=== PATIENT | female | born 1955 | race Caucasian/White ===

== ENCOUNTER 2019-09-20 09:50 | Day surgery (SDC) | payer OTHER, MEDICARE ==
[2019-09-19 11:28] LABS: CALC OSMOLALITY 280 mosm/kg (275-300); CARBON DIOXIDE 29.7 mmol/L (21.0-32.0); CHLORIDE - SERUM 105 mmol/L (98-107); CREATININE - SERUM 0.7 mg/dL (0.6-1.3); GLUCOSE 120 mg/dL (74-106); POTASSIUM - SERUM 3.6 mmol/L (3.5-5.1); SODIUM 140 mmol/L (136-145); UREA NITROGEN 15 mg/dL (7-18); eGFR NON AFRICAN AMERICAN 89 mL/min (90-120)
[2019-09-19 12:37] LABS: HEMATOCRIT 40.4 % (36.0-48.0); HEMOGLOBIN 13.4 g/dL (12-16); MCH 29.1 pg (26.0-34.0); MCHC 33.2 g/dL (31.0-37.0); MCV 87.8 fL (80.0-100.0); RBC 4.6 10x6/uL (4.00-5.40); RDW 14.9 % (11.5-14.5); WBC 6.9 10x3/uL (4.8-10.8)
[2019-09-19 12:38] LABS: MEAN PLATELET VOLUME 10.5 fL (7.4-10.4)
[~2019-09-20] VITALS: Ht 165.1 cm; Wt 133.4 kg
[~2019-09-20 09:50] MED LIST: ADVAIR HFA [SP]12 GM INH; BAYER CHEWABLE81 MG PO; CELEXA40 MG PO; CORGARD80 MG PO; CRESTOR5 MG PO; ELIQUIS5 MG PO; FUROSEMIDE40 MG PO; LEVOXYL100 MCG PO; METOLAZONE2.5 MG PO; OMEPRAZOLE20 M1; VITAMIN D250000 UNIT PO; ZOMIG5 MG PO
[2019-09-20 10:19] VITALS: Ht 165.1 cm; Wt 133.4 kg
[2019-09-20] MEDS ORDERED: DURICEF500 MG PO (12:35)
[2019-09-20] MEDS ORDERED: PERCOCET 5-3251 TAB PO (12:35)
--- NOTE | 2019-09-23 11:55 | OP ---
PATIENT NAME: ASHVIN JACOBSEN MEDICAL RECORD: [id number] :53 LOCATION:[facility] ADMISSION DATE: SURGEON: DOM MAHAJAN DO DATE OF OPERATION: 09/20/2019 PROCEDURE PERFORMED: Left endoscopic carpal tunnel release and left open cubital tunnel release. PREOPERATIVE DIAGNOSES: Left carpal tunnel syndrome and left cubital tunnel syndrome. POSTOPERATIVE DIAGNOSES: Left carpal tunnel syndrome and left cubital tunnel syndrome. INDICATIONS: Ms. Jacobsen is a 64-year-old female who has had left carpal tunnel symptoms for quite some time. She had a nerve conduction study done that showed [id number] carpal tunnel syndrome on the left as well as cubital tunnel syndrome on the left. She wanted something done, was tired dealing with the pain and I told her the risks including infection, bleeding, damage to the median and ulnar nerves, loss of function of those nerves, need for further surgery, continued pain and the numbness may not completely return due to the damage of the nerves already. She is aware that risks and signed the consent. SURGEON: Dom Mahajan DO DESCRIPTION OF PROCEDURE: The patient was taken to the operative suite, laid in supine position, given 3 grams of Ancef preoperatively, sedated and LMA was placed. The left upper extremity was then prepped and draped in sterile fashion. Timeout was performed. Everyone was in agreeance with the correct side, site, patient and procedure. I was assisted by Emiliano Sinclair, certified surgical first line supervisor. He assisted with retraction as well as closing. Once time-out had been performed, the incision was made over the cubital tunnel at the elbow and careful dissection was made down to the ulnar nerve and this was dissected out very carefully. There was a very tight compression of the Nelson ligament. This was released proximally as well up to the triceps septum and then distally into the flexor carpi ulnaris and the nerve was freed up at that point and no compression sites were noted. Then, attention was drawn to the carpal tunnel and small incision was made at the wrist crease of the left wrist, a little bit ulnar and then a Ragnells were used to carefully dissect down to the median nerve in the carpal tunnel. The forearm fascia was released from distal to proximal at that point and then the dilators were placed into the carpal tunnel. The sheath was then placed in, camera was then entered. A probe and rasp were used to ensure there was no transverse ligament to this nerve, and there was not and then the blade was then brought in and raised up in the transverse carpal ligament was divided with fat herniating down into the carpal tunnel, indicating good release. This was all then removed and then with a direct loop visualization and a pickup and Ragnell and Littler scissors. Any fibers left remaining were spread and had a good release of the carpal tunnel and the transverse carpal ligament. The tourniquet was then let down. The sites were injected with 0.25% Marcaine with epinephrine, 5 mL in each site. Any bleeding was coagulated with the bipolar. The carpal tunnel was then closed with 5-0 Monocryl in an inverted interrupted fashion and Steri-Strips placed on it and then the cubital tunnel was closed with 3-0 Vicryl in an inverted interrupted fashion and then 5-0 Monocryl ran on the skin. Steri-Strips were placed on that. She was then dressed with Adaptic and 4 x 4s and a Kerlix and OPERATIVE REPORT [id number] ASHVIN JACOBSEN then a 4-inch Prasad wrap from the hand up above the elbow. She was awakened and taken to recovery in stable condition. BLOOD LOSS: Minimal. COMPLICATIONS: None. TRANSINT:[id number] Voice Confirmation ID: [id number] DOCUMENT ID: [id number] DOM MAHAJAN DO at 1155 CC: [id number] DICTATION DATE: 09/20/19 1240 FINANCE VICE PRESIDENT: 09/20/19 1637 [facility] [address] [place] [address]
== END 2019-09-20 09:51 | disposition home or self-care (01) ==
LOC: D.OPS 09:50 → D.PAN 13:00 → D.OPS 13:15 → D.PAN 13:15 → D.OPS 13:45 → D.PAN 13:45 → D.OPS 10-11 13:15
PROVIDERS: Anesthesiology; ATTEND Orthopaedic Surgery
DX: G56.02 Carpal tunnel syndrome, left upper limb (principal); G56.22 Lesion of ulnar nerve, left upper limb; M79.644 Pain in right finger(s); G56.03 Carpal tunnel syndrome, bilateral upper limbs; I82.509 Chronic embolism and thrombosis of unspecified deep veins of unspecified lower extremity; E78.00 Pure hypercholesterolemia, unspecified; J45.909 Unspecified asthma, uncomplicated; E66.01 Morbid (severe) obesity due to excess calories; K21.9 Gastro-esophageal reflux disease without esophagitis; I48.0 Paroxysmal atrial fibrillation; Z79.01 Long term (current) use of anticoagulants; E03.9 Hypothyroidism, unspecified

== ENCOUNTER → 2019-09-20 09:50 | Day surgery (SDC) | payer OTHER, MEDICARE ==
[~2019-09-20 09:50] MED LIST changes: +DURICEF500 MG PO; +PERCOCET 5-3251 TAB PO
[2019-09-20 10:19] VITALS: BMI 49.0
== END | disposition home or self-care (01) ==
LOC: D.OPS 09:50 → D.PAN 10-11 07:00
PROVIDERS: ATTEND Orthopaedic Surgery
DX: G56.02 Carpal tunnel syndrome, left upper limb (principal); G56.22 Lesion of ulnar nerve, left upper limb

== ENCOUNTER 2019-10-08 15:25 | Inpatient (IN) | payer OTHER, MEDICARE ==
[~2019-10-08] VITALS: Ht 165.1 cm; Wt 129.5 kg
[2019-10-08 16:03] LABS: CALC OSMOLALITY 283 mosm/kg (275-300); CALCIUM 8.7 mg/dL (8.5-10.1); CARBON DIOXIDE 27.4 mmol/L (21.0-32.0); CHLORIDE - SERUM 103 mmol/L (98-107); GLUCOSE 95 mg/dL (74-106); POTASSIUM - SERUM 3.4 mmol/L (3.5-5.1); SODIUM 141 mmol/L (136-145); UREA NITROGEN 21 mg/dL (7-18); eGFR NON AFRICAN AMERICAN 59 mL/min (90-120)
[2019-10-08 16:04] LABS: BASOPHILS 0.4 % (0-2); EOSINOPHILS 2.6 % (0-7); HEMATOCRIT 43.9 % (36.0-48.0); HEMOGLOBIN 14.8 g/dL (12-16); IMMATURE GRANULOCYTES 0.3 % (0-5); LYMPHOCYTES 24.9 % (15-50); MCH 29.4 pg (26.0-34.0); MCHC 33.7 g/dL (31.0-37.0); MCV 87.1 fL (80.0-100.0); MONOCYTES 12.1 % (2-11); NEUTROPHILS 59.7 % (40-80); PLATELET COUNT 311 10x3/uL (130-400); RBC 5.04 10x6/uL (4.00-5.40); RDW 14.4 % (11.5-14.5)
[2019-10-08 16:28] LABS: ALBUMIN 3.7 g/dL (3.4-5.0); ALKALINE PHOSPHATASE 102 U/L (46-116); ALT (SGPT) 37 U/L (10-68); BILIRUBIN - TOTAL 0.33 mg/dL (0.2-1.3); CKMB 2.4 U/L (0.0-3.6); CREATINE KINASE 78 UL (21-215); PROTEIN - SERUM 7.2 g/dL (6.4-8.2); THYROID STIMULATING HORMONE 3.08 uIU/mL (0.36-3.74); TROPONIN-I < 0.017 ng/mL (0.000-0.060)
[2019-10-08 16:31] LABS: APTT 28.3 SECONDS (22.8-39.4); INR 1.11 (0.85-1.17); PROTIME 13.8 SECONDS (11.6-15.0)
[2019-10-08] MEDS ORDERED: NADOLOL80 MG PO (17:20)
--- NOTE | 2019-10-08 19:10 | NUR ---
PALPATED RADIAL PULSE 62. PAGED AT THIS TIME CONCERNING MED ORDERS FOR CARDIZEM 10MG BOLUS, CARDIZEM DRIP.
--- NOTE | 2019-10-08 19:26 | NUR ---
PER DR. MCINTYRE VERBAL ORDER, CARDIZEM DRIP AND CARDIZEM BOLUS NOT TO BE GIVEN TO PT.
--- NOTE | 2019-10-08 19:50 | NUR ---
ADMIT TO ROOM 215 FROM ER. ALERT/ORIENTED/AMBULATORY. ADMISSION ASSESSMENT AND HISTORY COMPLETED. HOME MEDS REVIEWED. BEDTIME MEDS TAKEN FOR TONIGHT FROM HOME MEDS. TELEMETRY STARTED CAF '. PLAN OF CARE INITIATED.
--- NOTE | 2019-10-08 22:38 | NUR ---
PT RESTING WITH NO DISTRESS. ROOM AIR. 85-100 CAF PER TELEMETRY. IVF INFUSING. CPOC.
[2019-10-08 23:56] VITALS: Ht 165.1 cm; Wt 129.5 kg
[2019-10-09] VITALS: BP 101/67
[2019-10-09 00:55] LABS: CKMB 1.6 U/L (0.0-3.6); CREATINE KINASE 63 UL (21-215)
[2019-10-09 00:56] LABS: TROPONIN-I < 0.017 ng/mL (0.000-0.060)
--- NOTE | 2019-10-09 01:46 | NUR ---
RESTING IN BED, IVF INFUSING. 88-110 CAF PER TELEMETRY. CPOC.
[2019-10-09 04:00] VITALS: BP 115/64
[2019-10-09 06:25] LABS: BASOPHILS 0.3 % (0-2); EOSINOPHILS 3.1 % (0-7); HEMATOCRIT 39.1 % (36.0-48.0); IMMATURE GRANULOCYTES 0.3 % (0-5); LYMPHOCYTES 22.3 % (15-50); MCHC 33.2 g/dL (31.0-37.0); MCV 87.3 fL (80.0-100.0); MEAN PLATELET VOLUME 9.9 fL (7.4-10.4); MONOCYTES 13.8 % (2-11); NEUTROPHILS 60.2 % (40-80); RBC 4.48 10x6/uL (4.00-5.40); RDW 14.5 % (11.5-14.5)
[2019-10-09 06:26] LABS: PLATELET COUNT 220 10x3/uL (130-400); WBC 5.9 10x3/uL (4.8-10.8)
--- NOTE | 2019-10-09 06:29 | NUR ---
PT HAS BEEN CAF 80'S TO UCAF 120 THROUGHOUT THE NIGHT. NEVER SUSTAINING AN ELEVATED RATE FOR ANY LENGTH OF TIME. KEEPING NPO UNTIL SEEN BY APPLICATION SECURITY DEVELOPER. IVF NS INFUSING. CARDIZEM ON HOLD ENTIRE SHIFT PER ORDERS RECIEVED IN ER.
[2019-10-09 07:01] LABS: ALKALINE PHOSPHATASE 80 U/L (46-116); ALT (SGPT) 35 U/L (10-68); BILIRUBIN - TOTAL 0.36 mg/dL (0.2-1.3); CALC OSMOLALITY 289 mosm/kg (275-300); CALCIUM 7.9 mg/dL (8.5-10.1); CHLORIDE - SERUM 106 mmol/L (98-107); CKMB 1.5 U/L (0.0-3.6); CREATINE KINASE 58 UL (21-215); CREATININE - SERUM 0.8 mg/dL (0.6-1.3); GLUCOSE 119 mg/dL (74-106); MAGNESIUM - SERUM 1.8 mg/dL (1.8-2.4); PHOSPHOROUS 4.3 mg/dL (2.5-4.9); POTASSIUM - SERUM 3.2 mmol/L (3.5-5.1); PRO BNP 1314 pg/mL (0-125); PROTEIN - SERUM 6.2 g/dL (6.4-8.2); SODIUM 144 mmol/L (136-145); UREA NITROGEN 19 mg/dL (7-18); eGFR NON AFRICAN AMERICAN 76 mL/min (90-120)
[2019-10-09 07:02] LABS: TROPONIN-I < 0.017 ng/mL (0.000-0.060)
[2019-10-09 08:07] VITALS: BP 107/61
[2019-10-09] MEDS ORDERED: BETAPACE 80 MG80 MG PO (10:10)
--- NOTE | 2019-10-09 10:33 | NUR ---
1025-I CALLED RINKU CAMERON TO SEE IF PATIENT NEEDS ANYTHING. AWAITING CALL BACK.
--- NOTE | 2019-10-09 10:39 | NUR ---
I SPOKE WITH PATIENT ABOUT DISCHARGE PLANNING NEEDS. PATIENT STATES THAT SHE IS SAFE TO RETURN HOME AND DENIES ANY NEEDS FROM A CM STANDPOINT. PATIENT IS SAFE FOR DISCHARGE. CM TO FOLLOW AND ASSIST NEEDED
--- NOTE | 2019-10-09 12:00 | NUR ---
REVIEWED DISCHARGE INSTRUCTIONS WITH PT STATES UNDERSTANDING COPY GIVEN DC/D SALINE LOCK TO LFA WITH IV CATHETER INTACT SITE FREE OF REDNESS OR EDEMA PT DISCHARGED HOME LEFT UNIT IN STABLE CONDITION WITH ALL PERSONAL BELONGINGS LEFT VIA W/C
--- NOTE | 2019-10-09 13:02 | NUR ---
RECEIVED PT IN BED AAOX4 RESP UNLABORED DENIES ANY NEEDS OR DISCOMFORT AT THIS TIME NAD NOTED
--- NOTE | 2019-10-10 07:01 | MORECARE ---
CASE MANAGEMENT DISCHARGE SUMMARY PATIENT: ASHVIN SORIA UNIT: [id number] ADM DATE: 10/08/19 AGE: 64 : 54 SEX: F ROOM/BED: D.0390 AUTHOR: ОЛЕГ MADDEN PHYSICIAN: REFERRING PHYSICIAN: MICHAEL DEL ROSARIO MD DATE OF SERVICE: 10/10/19 Discharge Plan Patient Name: ASHVNI SORIA Facility: [facility]:[place] : 1955 Planned Disposition: Home Anticipated Discharge Date: 10/09/19 Discharge Date: 10/09/2019 Expected LOS: 1 Initial Reviewer: [email or web address] Initial Review Date: 10/10/2019 Generated: 10/10/19 8:01 am Patient Name: ASHVIN SORIA Page 30021 at 0701 All edits/amendments must be made on the electronic document DICTATION DATE: 10/10/19700 MIXING PLANT DUMPER: LAUREN 10/10/19700 RPT#: [id number] DC DATE:10/09/19 STATUS: DIS IN [facility] [address] [place] [address] END OF REPORT
== END 2019-10-09 12:00 | disposition home or self-care (01) | DRG 309 ==
LOC: D.ER 15:25 → D.M2 18:34 → D.ER 19:02 → D.M2 10-09 12:00
PROVIDERS: Family Medicine; ADMIT Internal Medicine Nephrology; ATTEND Internal Medicine Nephrology
DX: I48.91 Unspecified atrial fibrillation (principal); Z68.42 Body mass index [BMI] 45.0-49.9, adult; E87.6 Hypokalemia; I10 Essential (primary) hypertension; E03.9 Hypothyroidism, unspecified; K21.9 Gastro-esophageal reflux disease without esophagitis; K58.9 Irritable bowel syndrome, unspecified; E66.01 Morbid (severe) obesity due to excess calories

== ENCOUNTER 2021-03-07 15:34 | Inpatient (IN) | payer MEDICARE, OTHER ==
[~2021-03-07] VITALS: Ht 165.1 cm; Wt 108.2 kg
[~2021-03-07 15:34] MED LIST changes: +BETAPACE 80 MG80 MG PO; +NADOLOL80 MG PO; -OMEPRAZOLE20 M1; +OMEPRAZOLE20 M1 PO; +VISTARIL50 MG PO
[2021-03-07 16:06] LABS: BASOPHILS 1.4 % (0-2); EOSINOPHILS 3.3 % (0-7); HEMATOCRIT 41.8 % (36.0-48.0); HEMOGLOBIN 14.4 g/dL (12-16); LYMPHOCYTES 20.8 % (15-50); MCH 29.6 pg (26.0-34.0); MCHC 34.3 g/dL (31.0-37.0); MCV 86.2 fL (80.0-100.0); MEAN PLATELET VOLUME 8.4 fL (7.4-10.4); MONOCYTES 10.7 % (2-11); NEUTROPHILS 63.8 % (40-80); PLATELET COUNT 251 10x3/uL (130-400); RBC 4.85 10x6/uL (4.00-5.40); RDW 14.5 % (11.5-14.5); WBC 7.6 10x3/uL (4.8-10.8)
[2021-03-07 16:13] LABS: APTT 28.3 SECONDS (22.8-39.4); CALC OSMOLALITY 289 mosm/kg (275-300); CALCIUM 8.5 mg/dL (8.5-10.1); CARBON DIOXIDE 26.6 mmol/L (21.0-32.0); CHLORIDE - SERUM 107 mmol/L (98-107); CREATININE - SERUM 0.6 mg/dL (0.6-1.3); GLUCOSE 117 mg/dL (74-106); INR 1.16 (0.85-1.17); POTASSIUM - SERUM 3.9 mmol/L (3.5-5.1); PROTIME 13.7 SECONDS (11.6-15.0); SODIUM 143 mmol/L (136-145); UREA NITROGEN 24 mg/dL (7-18); eGFR NON AFRICAN AMERICAN > 90 mL/min (90-120)
[2021-03-07 16:30] LABS: ALBUMIN 3.6 g/dL (3.4-5.0); ALKALINE PHOSPHATASE 77 U/L (30-120); ALT (SGPT) 35 U/L (10-68); BILIRUBIN - TOTAL 0.34 mg/dL (0.2-1.3); CKMB 2.3 U/L (0.0-3.6); CREATINE KINASE 92 UL (21-215); PROTEIN - SERUM 7.1 g/dL (6.4-8.2)
[2021-03-07 16:37] LABS: TROPONIN-I < 0.017 ng/mL (0.000-0.060)
[2021-03-07 16:59] VITALS: BP 110/83
--- NOTE | 2021-03-07 18:46 | NUR ---
RECEIVED PATIENT TO ROOM 2135 VIA WHEELCHAIR. PATIENT IS AAOX4, UP AD ADITYA. NO S/S OF DISTRESS OBSERVED, RR EVEN AND UNLABORED ON ROOM AIR. NO NEEDS EXPRESSED AT THIS TIME. CL IN REACH, BED LOCKED AND LOWERED. WILL CPOC.
--- NOTE | 2021-03-07 18:49 | NUR ---
FAHAD CESAR SISTER [phone] MAICO CESAR [phone]
[2021-03-07 23:44] LABS: CKMB 1.6 U/L (0.0-3.6); CREATINE KINASE 58 UL (21-215); TROPONIN-I < 0.017 ng/mL (0.000-0.060)
[2021-03-08] VITALS (7 sets, daily range): BP systolic 90–112; BP diastolic 56–75; Ht 165.1 cm; Wt 108.2 kg
[2021-03-08 04:01] LABS: CKMB 1.6 U/L (0.0-3.6); CREATINE KINASE 52 UL (21-215); TROPONIN-I < 0.017 ng/mL (0.000-0.060)
[2021-03-08 07:03] LABS: BASOPHILS 0.7 % (0-2); HEMATOCRIT 37.6 % (36.0-48.0); HEMOGLOBIN 12.9 g/dL (12-16); LYMPHOCYTES 25.2 % (15-50); MCH 29.9 pg (26.0-34.0); MCHC 34.4 g/dL (31.0-37.0); MCV 87.1 fL (80.0-100.0); MEAN PLATELET VOLUME 8.4 fL (7.4-10.4); MONOCYTES 10.1 % (2-11); PLATELET COUNT 216 10x3/uL (130-400); RBC 4.32 10x6/uL (4.00-5.40); RDW 14.3 % (11.5-14.5); WBC 6.1 10x3/uL (4.8-10.8)
[2021-03-08 07:14] LABS: ALBUMIN 3.3 g/dL (3.4-5.0); ALKALINE PHOSPHATASE 65 U/L (30-120); ALT (SGPT) 28 U/L (10-68); BILIRUBIN - TOTAL 0.36 mg/dL (0.2-1.3); CALC OSMOLALITY 292 mosm/kg (275-300); CALCIUM 8.5 mg/dL (8.5-10.1); CARBON DIOXIDE 27.9 mmol/L (21.0-32.0); CHLORIDE - SERUM 109 mmol/L (98-107); CREATININE - SERUM 0.6 mg/dL (0.6-1.3); GLUCOSE 121 mg/dL (74-106); MAGNESIUM - SERUM 2.1 mg/dL (1.8-2.4); POTASSIUM - SERUM 3.4 mmol/L (3.5-5.1); PROTEIN - SERUM 5.9 g/dL (6.4-8.2); SODIUM 145 mmol/L (136-145); UREA NITROGEN 20 mg/dL (7-18); eGFR NON AFRICAN AMERICAN > 90 mL/min (90-120)
[2021-03-08 11:02] LABS: CKMB 1.4 U/L (0.0-3.6); CREATINE KINASE 55 UL (21-215); TROPONIN-I < 0.017 ng/mL (0.000-0.060)
[2021-03-08 15:23] LABS: BILIRUBIN NEGATIVE (NEGATIVE); KETONE NEGATIVE (NEGATIVE); NITRITE NEGATIVE (NEGATIVE); UROBILINOGEN NORMAL mg/dL (< 2)
[2021-03-08 15:26] LABS: WHITE CELLS - URINE 0-5 HPF (0-4)
--- NOTE | 2021-03-08 22:15 | NUR ---
BP 90/64 PULSE 118 PT WARY OF TAKING BETAPACE 120 MG, CALLED DR MCINTYRE OK TO GIVE BETAPACE PER DR MCINTYRE, PT AGREEABLE. NO ISSUES REPORTED WILL CONTINUE TO MONITOR
[2021-03-09] VITALS: BP 100/61
[2021-03-09 04:00] VITALS: BP 122/79
[2021-03-09 06:39] LABS: BASOPHILS 0.8 % (0-2); EOSINOPHILS 3.6 % (0-7); HEMATOCRIT 39.6 % (36.0-48.0); HEMOGLOBIN 13.2 g/dL (12-16); LYMPHOCYTES 22.4 % (15-50); MCH 29.1 pg (26.0-34.0); MCHC 33.4 g/dL (31.0-37.0); MEAN PLATELET VOLUME 8.6 fL (7.4-10.4); MONOCYTES 9.2 % (2-11); PLATELET COUNT 244 10x3/uL (130-400); RBC 4.55 10x6/uL (4.00-5.40); RDW 14.4 % (11.5-14.5); WBC 6.7 10x3/uL (4.8-10.8)
[2021-03-09 07:10] LABS: ALBUMIN 3.4 g/dL (3.4-5.0); ALKALINE PHOSPHATASE 70 U/L (30-120); ALT (SGPT) 30 U/L (10-68); BILIRUBIN - TOTAL 0.41 mg/dL (0.2-1.3); CALCIUM 8.4 mg/dL (8.5-10.1); CARBON DIOXIDE 26.1 mmol/L (21.0-32.0); CHLORIDE - SERUM 105 mmol/L (98-107); CREATININE - SERUM 0.7 mg/dL (0.6-1.3); GLUCOSE 122 mg/dL (74-106); POTASSIUM - SERUM 3.1 mmol/L (3.5-5.1); PROTEIN - SERUM 6.7 g/dL (6.4-8.2); SODIUM 139 mmol/L (136-145); eGFR NON AFRICAN AMERICAN 88 mL/min (90-120)
[2021-03-09 07:11] LABS: CALC OSMOLALITY 279 mosm/kg (275-300); UREA NITROGEN 14 mg/dL (7-18)
[2021-03-09 08:00] VITALS: BP 97/67
[2021-03-09] MEDS ORDERED: BETAPACE 120 M120 MG PO (10:11)
--- NOTE | 2021-03-09 10:34 | NUR ---
PATIENT AAOX4 SITTING IN BEDISDE CHAIR, RESP EVEN AND NON LABORED, NO S/S OF DISTRESS, MEDICATIONS ADMINSITERED WITH NO COMPLICATIONS, PATIENT IS BEING DISCHARGED, NO FURTHER NEEDS AT THIS TIME, TRINY ANDINO
== END 2021-03-09 12:07 | disposition home or self-care (01) | DRG 310 ==
LOC: D.ER 15:34 → OBSVTIME 17:40 → D.M2 17:40
PROVIDERS: Family Medicine; ADMIT Emergency Medicine; ATTEND Emergency Medicine
DX: I48.20 Chronic atrial fibrillation, unspecified (principal); I10 Essential (primary) hypertension; E03.9 Hypothyroidism, unspecified; K21.9 Gastro-esophageal reflux disease without esophagitis; K58.9 Irritable bowel syndrome, unspecified; G47.33 Obstructive sleep apnea (adult) (pediatric); F41.9 Anxiety disorder, unspecified; M19.90 Unspecified osteoarthritis, unspecified site; F32.9 Major depressive disorder, single episode, unspecified; Z79.01 Long term (current) use of anticoagulants; E78.5 Hyperlipidemia, unspecified